=== PATIENT | female | born 1980 | race Caucasian/White ===

== ENCOUNTER 2018-09-11 09:56 | Outpatient (CLI) | payer BC ==
[2015-06-20 01:10] VITALS: BP 118/72
--- NOTE | 2018-09-19 07:56 | OP Clinic Progress Note ---
DATE OF VISIT: 09/11/2018 SUBJECTIVE: Jaleesa Luna is a 38-year-old female presenting today for bilateral plantar fasciitis. She was seen recently in clinic where she was diagnosed with this as well as gastrocnemius equinus of both lower extremities. We discussed the importance of appropriate inserts in the shoes as well as not walking barefoot as well as appropriate stretching exercises. She has been able to do lots of stretching exercises but she has not obtained the [employer] inserts yet. She just got paid today she says and she should be able to get them now. She presents today as the pain has been significant in both of the heels and she would like to have a steroid injection of both heels performed. She denies being diabetic and does not admit to any other issues at this time. She does not admit to any fevers, chills, nausea, vomiting, shortness of breath or chest pain. OBJECTIVE: Vitals: Temperature 97.2 degrees Fahrenheit, heart rate 106, respiration rate 16, blood pressure 126/79. O2 saturation is 97% on room air. Vascular: Palpable DP and PT pulses, bilaterally. There is hair growth to the toes bilaterally. Capillary refill time is less than 3 seconds to the toes bilaterally. There is no edema noted bilaterally. Dermatologic: There is no ecchymosis, erythema, open lesions or skin lesions noted, bilateral feet. Musculoskeletal: Pain to palpation is noted at the plantar medial calcaneal tubercle of the bilateral heels. She also has decreased ankle joint range of motion with the knee extended and improved with the knee flexed. This is in the previous exam note. There were no other gross abnormalities noted. She has 5/5 muscle strength about the ankle and subtalar joint bilaterally. Neurologic: Light touch sensation is intact to the toes bilaterally. ASSESSMENT AND PLAN: 1. Plantar fasciitis, bilateral feet. 2. Gastrocnemius equinus, bilateral lower extremities. Consent was obtained after discussion of risks and benefits that include but are not limited to bleeding, infection and steroid flare. The patient signed the consent. PROCEDURE #1 AND #2: Procedures #1 and #2 were a steroid injection of the plantar fascia, left and right heels without incident. An alcohol swab was utilized to cleanse the area of the injection and an injection of 1 mL of 2% lidocaine plain, 1 mL of 0.5% Marcaine plain, 0.5 mL of dexamethasone 4 mg/mL and 0.5 mL of Kenalog 40 mg/mL was injected into the right heel, and an identical injection was injected into the left heel plantar fascia area. Hemostasis was obtained with pressure and a Band-Aid on each area was applied. The patient tolerated the procedure well. We will consider physical therapy if this is not improving at the next visit. She will obtain her [employer] inserts as she just got paid and we will see if that is helping as well with continued stretching exercises too. We will consider night splint at the next visit if needed as well. If these are not improving after all these things then we will consider possible [place] procedure with AmnioFix versus endoscopic plantar fasciotomy. We will focus on conservative options first. Return to the [facility] clinic in 3 weeks for follow-up. The patient has no further questions and was grateful for her visit. It should be noted that consent was signed for a steroid injection in both left and right heels today, which was placed in the chart. Trent TurciosP.MMadelaine (Dictated/Not Signed) Milagros Job#: [id number] MTDD
== END 2018-09-11 10:28 ==
LOC: POD 09:56
PROVIDERS: ATTEND Podiatrist Foot & Ankle Surgery
DX: M72.9 Fibroblastic disorder, unspecified (principal); M21.6X1 Other acquired deformities of right foot; M21.6X2 Other acquired deformities of left foot
CPT/HCPCS: 20550; 99213

== ENCOUNTER 2018-10-29 14:56 | Outpatient (CLI) | payer BC ==
[2015-06-20 01:10] VITALS: BP 118/72
== END 2018-10-29 14:58 ==
LOC: LABRHC 14:56
PROVIDERS: ATTEND Podiatrist Foot & Ankle Surgery
DX: L98.9 Disorder of the skin and subcutaneous tissue, unspecified (principal); R21 Rash and other nonspecific skin eruption

== ENCOUNTER 2018-10-30 13:40 | Outpatient (CLI) | payer BC ==
[2015-06-20 01:10] VITALS: BP 118/72
== END 2018-10-30 13:43 ==
LOC: LAB 13:40
PROVIDERS: ATTEND Podiatrist Foot & Ankle Surgery
DX: R21 Rash and other nonspecific skin eruption (principal)
CPT/HCPCS: 36415; 85651; 86140

== ENCOUNTER 2018-11-03 08:19 | Day surgery (SDC) | payer BC ==
[2015-06-20 01:10] VITALS: BP 118/72
[2018-11-03] MEDS ORDERED: LACTATED RINGERS 1,000 ML IV.SOLN IV ONE (08:48)
[2018-11-03] MEDS ORDERED: LIDOCAINE HCL 2% PF 100MG/5ML VIAL IJ ONE (08:48)
[2018-11-03] MEDS ORDERED: PROPOFOL 500 MG/50 ML VIAL IV ONE (08:48)
--- NOTE | 2018-11-05 13:12 | GI Report ---
DATE OF PROCEDURE: 11/03/2018 REFERRING PHYSICIAN: Dr. Piper. SURGEON: Mary De La Cruz M.D., Saul.[email or web address].C.P. PROCEDURE PERFORMED: Colonoscopy. INDICATION FOR PROCEDURE: The patient is a 38-year-old woman who apparently had a polyp over 10 years ago. She has had trouble with constipation. She denies blood in the stool. Her last colonoscopy was over 10 years ago. With change of bowel habits and that history she is referred for colonoscopy today. PROCEDURE MEDICATION: Propofol, as per Anesthesia. DESCRIPTION OF PROCEDURE: The Olympus video colonoscope was advanced through the rectum. The colonoscope was slowly advanced all the way to the cecum. She had a very atonic redundant colon, and the prep was fair. We did look at the terminal ileum. No Crohns disease. On slow withdrawal, the cecum, ascending colon and transverse colon, no obvious intraluminal lesions were noted though a lot of redundancy. Descending colon and sigmoid, again a lot of redundancy. No obvious intraluminal lesions. Retroflexion in the rectum was normal. The patient tolerated the procedure well. FINDINGS: 1. Atonic redundant colon. RECOMMENDATIONS: 1. Would increase fiber in the diet, fruits, vegetables, take Benefiber. Would also add MiraLAX daily. She is a smoker, and is also on medications that decrease motility so she may well need to increase the amount of liquids and MiraLAX with the program. 2. Consider relook at her colon in 10 years unless there is some interval change. 3. Follow up with Dr. Piper. MARY DE LA CRUZ M.D., F.A.CMadelaineP. Gabriella Job#: [id number] cc: Dr. Feliz NAJERA
== END 2018-11-03 11:33 | disposition home or self-care (01) ==
LOC: OPSURG 08:19
PROVIDERS: ATTEND Internal Medicine Gastroenterology
DX: Z86.010 Personal history of colon polyps (principal); Z87.19 Personal history of other diseases of the digestive system; K59.8 Other specified functional intestinal disorders; Z98.890 Other specified postprocedural states
CPT/HCPCS: 45378; 88305; J2001; J2704; J7120